=== PATIENT | female | born 1945 | race African-American/Black ===

== ENCOUNTER 2016-09-10 11:48 | Outpatient (RCR) | payer MEDICARE, MEDICAID ==
[~2016-09-10 11:48] MED LIST: ATENOLOL; BACTRIM DS TAB1 EAC1 ORAL; BACTRIM-DS1 EA ORAL; BACTRIM-DS1 EA PO; BENTYL10 MG ORAL; CELEBREX; COLACE100 MG/10 GT; Crestor; HYZAAR; IBUPROFEN600 MG ORAL; IBUPROFEN800 MG ORAL; KEFLEX; KEFLEX500 MG ORAL; LIPITOR; NITROFURANTOIN100 M2 ORAL; NORCO 5-325 TA1 EACH ORAL; NORVASC; ONDANSETRON ODT4 MG ORAL; PRILOSEC; hyzaar; norvasc
== END 2016-09-14 | disposition home or self-care (01) ==
LOC: PTY 11:48
DX: M54.08 Panniculitis affecting regions of neck and back, sacral and sacrococcygeal region (principal); M51.36 Other intervertebral disc degeneration, lumbar region; I10 Essential (primary) hypertension
CPT/HCPCS: 97110; 97140; 97162; G8978; G8979

== ENCOUNTER 2016-10-12 10:45 | Outpatient (RCR) | payer MEDICARE, MEDICAID | END 2016-10-15 | disposition home or self-care (01) | LOC: PTY 10:45 | DX: M54.08 Panniculitis affecting regions of neck and back, sacral and sacrococcygeal region (principal); M51.36 Other intervertebral disc degeneration, lumbar region; I10 Essential (primary) hypertension; M19.91 Primary osteoarthritis, unspecified site | CPT/HCPCS: 97035; 97110; 97140; G0283 ==

== ENCOUNTER 2017-02-21 16:18 | Emergency (ER) | payer MEDICARE, MEDICAID ==
[~2017-02-21] VITALS: Ht 154.9 cm; Wt 94.3 kg
[2017-02-21 17:15] VITALS: BP 145/88
[2017-02-21 17:34] LABS: BASOPHILS % (AUTO) 2.5 % (0.0-2.0); EOSINOPHILS % (AUTO) 3.8 % (0.0-3.0); HEMATOCRIT 39.5 % (37.0-47.0); LYMPHOCYTES % (AUTO) 34.4 % (20.0-45.0); MEAN CORPUSCULAR VOLUME 97 FL (80-99); MONOCYTES % (AUTO) 10.5 % (1.0-10.0); NEUTROPHILS % (AUTO) 48.9 % (45.0-75.0); PLATELET COUNT 103 K/UL (150-450); RED BLOOD COUNT 4.09 M/UL (4.20-5.40); RED CELL DISTRIBUTION WIDTH 13.2 % (11.6-14.8); WHITE BLOOD COUNT 3.9 K/UL (4.8-10.8)
[2017-02-21] MEDS ORDERED: TESSALON PERLE100 MG ORAL (17:42)
--- NOTE | 2017-02-21 17:42 | Emergency Room Report ---
History of Present Illness General Chief Complaint: Chest Pain Source: Patient Present Illness HPI 71-year-old female, history of hypertension, presenting with dry cough for one week. Dry cough, slight shortness of breath. Also complaining of some intermittent substernal chest pain. States that she is unsure if it is related to the cough. Not experiencing any chest pain at this time. Some shortness of breath. No palpitations. States that everyone is sick around her. She still able to eat and drink, no nausea vomiting or diarrhea Allergies: Coded Allergies: PENICILLINS (Verified Allergy, Intermediate, ITCHING, 12/05/11) Patient History Past Medical History: see triage record Past Surgical History: none Pertinent Family History: none Last Menstrual Period: Post Reviewed Nursing Documentation: PMH: Agreed, PSxH: Agreed Nursing Documentation-PMH Hx Hypertension: Yes - high cholesterol Hx Pacemaker: No Hx Asthma: No Hx COPD: No Hx Cancer: No Hx Gastrointestinal Problems: Yes - ACID REFLUX, HERNIA, ULCER Hx Dialysis: No Hx Cerebrovascular Accident: No Hx Seizures: No Review of Systems All Other Systems: negative except mentioned in HPI Physical Exam Vital Signs Date Time Temp Pulse Resp B/P (MAP) Pulse Ox O2 Delivery O2 Flow Rate FiO2 02/21/17 16:45 98.2 60 20 145/88 99 Room Air Sp02 EP Interpretation: reviewed, normal General Appearance: normal inspection, well appearing, no apparent distress, alert, GCS 15, non-toxic Head: normocephalic, atraumatic Eyes: bilateral eye normal inspection, bilateral eye PERRL, bilateral eye EOMI ENT: normal ENT inspection, normal pharynx, normal voice, moist mucus membranes Neck: normal inspection, full range of motion, supple Respiratory: normal inspection, lungs clear, normal breath sounds, no respiratory distress, no retraction, no wheezing, speaking full sentences, chest symmetrical Cardiovascular #1: normal inspection, regular rate, rhythm, no edema, normal capillary refill Cardiovascular #2: 2+ radial (R), 2+ radial (L) Gastrointestinal: normal inspection, non tender, soft, non-distended, no guarding Musculoskeletal: normal inspection, back normal, normal range of motion, non- tender Neurologic: normal inspection, alert, oriented x3, responsive, motor strength/ tone normal, sensory intact, normal gait, speech normal Psychiatric: normal inspection, judgement/insight normal, memory normal Skin: normal inspection, normal color, no rash, warm/dry, well hydrated, normal turgor Medical Decision Making Diagnostic Impression: Primary Impression: Chest pain Additional Impression: Cough ER Course 71-year-old female, intermittent chest pain, cough for one week DDX: Viral illness, rule out pneumonia ACS vs. gastritis/GERD Plan: IV access, obtain labs including troponin, EKG, CXR ER course: Labs: troponin negative Patient remained chest pain free during ED stay. VSS nad at bedside will dc home Disposition: Patient will be discharged to home. Strict precautions discussed with patient on when to emergently return to the ED : this includes worsening/severe chest pain, palpitations, shortness of breath, syncopal episodes, fever or chills, which may indicate severe illness. Patient verbalized understanding. Patient instructed to follow up with their PMD within the next 2 days. Patient also instructed to follow up with a nail expert within 2 days for possible outpatient stress test. Patient agrees with plan. Please note that this Emergency Department Report was dictated using [employer]bag builder technology software, occasionally this can lead to erroneous entry secondary to interpretation by the dictation equipment. EKG Diagnostic Results EP Interpretation: Yes Rate: normal Rhythm: NSR ST Segments: Right bundle branch block. T-wave flattening in V2 ASA given to patient: y Rhythm Strip EP Interpretation: Yes Rate: 60 Rhythm: NSR, no PVCs, no ectopy Chest X-ray* CXR: Ordered: Yes 1 view Indication: Chest pain/cough EP interpretation: Yes Interpretation: No consolidation, no effusion, no PTX, no acute cardiopulmonary disease Impression: No acute disease Electronically signed by Josseline Boogie MD Laboratory Tests Test 02/21/17 17:11 White Blood Count 3.9 K/UL (4.8-10.8) L Red Blood Count 4.09 M/UL (4.20-5.40) L Hemoglobin 12.0 G/DL (12.0-16.0) Hematocrit 39.5 % (37.0-47.0) Mean Corpuscular Volume 97 FL (80-99) Mean Corpuscular Hemoglobin 29.4 PG (27.0-31.0) Mean Corpuscular Hemoglobin Concent 30.4 G/DL (32.0-36.0) L Red Cell Distribution Width 13.2 % (11.6-14.8) Platelet Count 103 K/UL (150-450) L Mean Platelet Volume 11.7 FL (6.5-10.1) H Neutrophils (%) (Auto) 48.9 % (45.0-75.0) Lymphocytes (%) (Auto) 34.4 % (20.0-45.0) Monocytes (%) (Auto) 10.5 % (1.0-10.0) H Eosinophils (%) (Auto) 3.8 % (0.0-3.0) H Basophils (%) (Auto) 2.5 % (0.0-2.0) H Sodium Level 143 MMOL/L (136-145) Potassium Level 4.3 MMOL/L (3.5-5.1) Chloride Level 108 MMOL/L (98-107) H Carbon Dioxide Level 28 MMOL/L (21-32) Anion Gap 7 mmol/L (5-15) Blood Urea Nitrogen 21 mg/dL (7-18) H Creatinine 0.8 MG/DL (0.55-1.30) Estimate Glomerular Filtration Rate > 60 mL/min (>60) Glucose Level 86 MG/DL (74-106) Calcium Level 9.2 MG/DL (8.5-10.1) Total Bilirubin 0.3 MG/DL (0.2-1.0) Aspartate Amino Transferase (AST) 19 U/L (15-37) Alanine Aminotransferase (ALT) 23 U/L (12-78) Alkaline Phosphatase 68 U/L (46-116) Troponin I 0.021 ng/mL (0.000-0.056) Pro-B-Type Natriuretic Peptide 139 pg/mL (0-125) H Total Protein 7.7 G/DL (6.4-8.2) Albumin 3.8 G/DL (3.4-5.0) Globulin 3.9 g/dL Albumin/Globulin Ratio 1.0 (1.0-2.7) Last Vital Signs Date Time Temp Pulse Resp B/P (MAP) Pulse Ox O2 Delivery O2 Flow Rate FiO2 02/21/17 16:45 98.2 60 20 145/88 99 Room Air Disposition: HOME, SELF-CARE Condition: Improved Scripts Benzonatate* (TESSALON PERLE*) 100 Mg Capsule 100 MG ORAL THREE TIMES A DAY, #21 PERLE 0 Refills Prov: Retino,Clairose M.D. 02/21/17 Referrals: NOT CHOSEN [facility]/,REFERRING (PCP) Patient Instructions: Nonspecific Chest Pain Josseline Boogie M.D. Feb 21, 2017 17:42
[2017-02-21 17:57] LABS: ANION GAP 7 mmol/L (5-15); BLOOD UREA NITROGEN 21 mg/dL (7-18); CALCIUM 9.2 MG/DL (8.5-10.1); CARBON DIOXIDE 28 MMOL/L (21-32); CHLORIDE 108 MMOL/L (98-107); CREATININE 0.8 MG/DL (0.55-1.30); POTASSIUM 4.3 MMOL/L (3.5-5.1); SODIUM 143 MMOL/L (136-145)
[2017-02-21 18:04] LABS: ALANINE AMINOTRANSFERASE 23 U/L (12-78); ALBUMIN 3.8 G/DL (3.4-5.0); ALKALINE PHOSPHATASE 68 U/L (46-116); ASPARTATE AMINO TRANSFERASE 19 U/L (15-37); BILIRUBIN,TOTAL 0.3 MG/DL (0.2-1.0)
[2017-02-21 18:22] VITALS: BP 153/84
--- NOTE | 2017-02-22 21:48 | Diagnostic Imaging Report ---
Indication: Cough Comparison: None A single view chest radiograph was obtained. Findings: Cardiomediastinal appearance is within normal limits for age. Pulmonary vascularity is appropriate. The diaphragmatic contour is smooth and costophrenic angles are sharp. No pleural effusions are identified. The bones are unremarkable. Impression: No acute findings
--- NOTE | 2017-02-22 21:49 | Cardiology Report ---
APPROVED REPORT EKG Measurement Heart [id number] Normal sinus rhythm Right bundle branch block Abnormal ECG
== END 2017-02-21 17:22 | disposition home or self-care (01) ==
LOC: EMR 16:51
DX: R05 Cough (principal); R07.89 Other chest pain; I10 Essential (primary) hypertension; Z88.0 Allergy status to penicillin; K21.9 Gastro-esophageal reflux disease without esophagitis; Z87.19 Personal history of other diseases of the digestive system
CPT/HCPCS: 36415; 71045; 80053; 83880; 84484; 85025; 93005; 99284

== ENCOUNTER 2017-03-22 13:00 | Outpatient (RCR) | payer MEDICARE, MEDICAID ==
[~2017-03-22 13:00] MED LIST changes: +TESSALON PERLE100 MG ORAL
== END 2017-04-14 | disposition home or self-care (01) ==
LOC: PTY 13:00
DX: M25.562 Pain in left knee (principal); M51.16 Intervertebral disc disorders with radiculopathy, lumbar region; M51.36 Other intervertebral disc degeneration, lumbar region; M54.08 Panniculitis affecting regions of neck and back, sacral and sacrococcygeal region
CPT/HCPCS: 97110; 97162; G0283; G8978; G8979

== ENCOUNTER 2017-04-19 13:21 | Outpatient (RCR) | payer MEDICARE, MEDICAID ==
[2017-04-26] MEDS ORDERED: TYLENOL EXTRA500 MG ORAL (15:43)
== END 2017-05-15 | disposition home or self-care (01) ==
LOC: PTY 13:21
DX: M25.562 Pain in left knee (principal); M51.16 Intervertebral disc disorders with radiculopathy, lumbar region; M51.36 Other intervertebral disc degeneration, lumbar region; M54.08 Panniculitis affecting regions of neck and back, sacral and sacrococcygeal region
CPT/HCPCS: 97110; G0283

== ENCOUNTER 2017-04-26 13:46 | Emergency (ER) | payer MEDICARE, MEDICAID ==
[~2017-04-26] VITALS: Ht 154.9 cm; Wt 93.0 kg
--- NOTE | 2017-04-26 14:23 | Emergency Room Report ---
History of Present Illness General Chief Complaint: Lower Extremity Injury Present Illness HPI 71 yo female patient presents to ER complaining of knee and hickman pain x1 week. Patient does not recall hx of incident or injury. Reports pain with ambulation; reports able to walk to ER today. Denies radiation of pain from back, reports pain in knee moves to anterior proximal hickman. Reports taking SOMA last night for relief of symptoms. Denies hx of DVT. Denies chest pain, SOB, abdominal pain, fever, rash. Denies taking blood thinners or anticoagulants. Denies calf pain, denies swelling of leg. Denies CA. Denies OCP. Denies recent travel, surgery, or immobilization. Denies hx of DVT, PE, or blood disorder. Allergies: Coded Allergies: PENICILLINS (Verified Allergy, Intermediate, ITCHING, 12/05/11) Patient History Past Medical History: see triage record Reviewed Nursing Documentation: PMH: Agreed, PSxH: Agreed Nursing Documentation-PMH Hx Hypertension: Yes - high cholesterol Hx Pacemaker: No Hx Asthma: No Hx COPD: No Hx Cancer: No Hx Gastrointestinal Problems: Yes - ACID REFLUX, HERNIA, ULCER Hx Dialysis: No Hx Cerebrovascular Accident: No Hx Seizures: No Review of Systems All Other Systems: negative except mentioned in HPI Physical Exam Vital Signs Date Time Temp Pulse Resp B/P (MAP) Pulse Ox O2 Delivery O2 Flow Rate FiO2 04/26/17 13:57 98.5 59 16 147/64 97 Room Air 98.4 Sp02 EP Interpretation: reviewed, normal General Appearance: well appearing, no apparent distress, alert, GCS 15, non- toxic Head: normocephalic, atraumatic Eyes: bilateral eye normal inspection, bilateral eye PERRL ENT: hearing grossly normal, normal pharynx, no angioedema, normal voice, uvula midline, moist mucus membranes Neck: full range of motion Respiratory: lungs clear, normal breath sounds, no rhonchi, no respiratory distress, no accessory muscle use, no wheezing, speaking full sentences Cardiovascular #1: regular rate, rhythm, no edema Cardiovascular #2: 2+ dorsalis pedis (R), 2+ dorsalis pedis (L) Gastrointestinal: non tender, soft, no mass, non-distended, no guarding, no rebound Genitourinary: no CVA tenderness Musculoskeletal: back normal, digits/nails normal, gait/station normal, normal range of motion, non-tender - right lower extremity below knee, no calf tenderness, Diane's Sign negative, swelling - mild over right knee patella, other - no pitting edema, negative anterior drawer, negative posterior drawer, negative Candy, negative syndesmotic squeeze, NVI, tender - over right patella Neurologic: alert, oriented x3, responsive, motor strength/tone normal, sensory intact Psychiatric: mood/affect normal Skin: no rash, other Lymphatic: no adenopathy Medical Decision Making PA Attestation Dr. Franks is my supervising Physician whom patient management has been discussed with. Diagnostic Impression: Primary Impression: Knee pain, right ER Course Pt. presents to the ED c/o right knee and leg pain. Ddx considered but are not limited to fracture, sprain, strain, contusion. Low suspicion for DVT per Well's criteria. Negative Diane's sign. Vital signs: are WNL, pt. is afebrile PE: mild swelling of right knee, mild TTP and swelling over right patella, no ecchymosis, or erythema of lower leg or calf. Do not need imaging for lower leg at this time. Ordered X-ray of right knee and pain medication. ER COURSE Patient provided with Tylenol for pain. An X-ray of the right knee was ordered, results show no acute fracture, per the preliminary reading. HOWIE Wrap applied and knee was checked afterwards by me showing good alignment and support with distal neurovascular functioning intact. Cane provided. Patient reports feeling better following administration of medication. Reports feeling better with HOWIE Wrap. Informed patient of DVT and PE warning signs to be aware of. Instructed patient to return to ER immediately for any symptoms including but not limited to chest pain, SOB, erythema and swelling of calf. Instructed patient to followup with cardiology and vascular surgeon as required by primary care provider. Patient reports understanding and agreement to treatment plan. DISCHARGE: -Rx provided for Tylenol for pain symptoms. At this time pt. is stable for d/c to home. Patient resting comfortably, in no acute distress, nontoxic appearing, resting comfortably, laughing and smiling without difficulty. Patient able to ambulate independently. Will provide printed patient care instructions, and any necessary prescriptions. Patient instructed to follow with primary care provider in 3 - 5 days and to request further orthopedic follow-up. Care plan and follow up instructions have been discussed with the patient prior to discharge. Patient instructed on RICE method: rest, ice, compression, elevation. Patient instructed to WBAT. Take medications as directed. Patient questions asked and answered. Patient reports understanding and agreement to treatment plan. ER precautions given, patient instructed to return to ER immediately for any new or worsening of symptoms. Other X-Ray Diagnostic Results Other X-Ray Diagnostic Results : X-Ray ordered: right knee # of Views/Limited Vs Complete: 3 View Indication: Pain EP Interpretation: Yes PA Xray: Interpretation reviewed, by supervising MD, and agrees with findings. Interpretation: no dislocation, no soft tissue swelling, no fractures Impression: No acute disease ELINA Scribe Text Chavez Byers PA-C Last Vital Signs Date Time Temp Pulse Resp B/P (MAP) Pulse Ox O2 Delivery O2 Flow Rate FiO2 04/26/17 13:57 98.5 59 16 147/64 97 Room Air 98.4 Disposition: HOME, SELF-CARE Condition: Stable Scripts Acetaminophen* (TYLENOL EXTRA STRENGTH*) 500 Mg Tablet 500 MG ORAL Q8H Y for Prn Headache/Temp > 101, #30 TAB 0 Refills Prov: Simon Byers 04/26/17 Patient Instructions: Knee Effusion, [id number] Additional Instructions: Patient instructed to follow up with primary care provider and discuss further referral to orthopedics. Patient instructed on RICE method: rest, ice, compression, elevation. Patient instructed to WBAT (weight bearing as tolerated). Discuss referral to cardiology and vascular surgeon as needed. Take medications as directed. Patient questions asked and answered. ER precautions given, patient instructed to return to ER immediately for any new or worsening of symptoms. Simon Byers Apr 26, 2017 14:23
[2017-04-26] MEDS ORDERED: Acetaminophen 500mg (ES) tab ORAL ONE (14:30)
[2017-04-26] MEDS ORDERED: TYLENOL EXTRA500 MG ORAL (15:43)
[2017-04-26 16:04] VITALS: BP 140/69
--- NOTE | 2017-04-26 16:14 | Diagnostic Imaging Report ---
Indications: Right knee pain Technique: Three views of the right knee Comparison: None Findings: No acute fractures. No dislocations. Joint spaces are preserved. No radiopaque foreign body. Normal mineralization. Impression: No acute process
== END 2017-04-26 16:04 | disposition home or self-care (01) ==
LOC: EMR 15:07
DX: M25.561 Pain in right knee (principal); E78.00 Pure hypercholesterolemia, unspecified; K21.9 Gastro-esophageal reflux disease without esophagitis; Z87.11 Personal history of peptic ulcer disease; Z88.0 Allergy status to penicillin
CPT/HCPCS: 99283

== ENCOUNTER 2018-08-02 17:37 | Emergency (ER) | payer MEDICARE, MEDICAID ==
[~2018-08-02] VITALS: Ht 154.9 cm; Wt 92.1 kg
[~2018-08-02 17:37] MED LIST changes: +TYLENOL EXTRA500 MG ORAL
[2018-08-02 18:15] VITALS: BP 153/72
[2018-08-02] MEDS ORDERED: Fleet's Enema 133ml RECTAL ONE (18:15)
--- NOTE | 2018-08-02 18:23 | Emergency Room Report ---
History of Present Illness General Chief Complaint: Constipation Source: Patient, Medical Record Present Illness HPI Patient presents emergency department today complaining of constipation. Patient states that she has not had a bowel movement in 4 days. She has abdominal discomfort. She states that she is been taking a lot of vitamin supplements and some of those have iron which have caused her to be constipated. She denies any fever nausea vomiting diarrhea chills. She states in the past she has no other modifying factors. No other associated signs and symptoms. No other complaints were noted. Had symptoms of constipation. She states that she has seen outside hospitals in the past as well. She denies any other complaints. Denies any dysuria urinary frequency. She states that she can just go to the bathroom she will feel much better. Allergies: Coded Allergies: PENICILLINS (Verified Allergy, Intermediate, ITCHING, 12/05/11) Patient History Past Medical History: other - High cholesterol PMH Narrative Gastric reflux, hernia, stomach ulcer Past Surgical History: none Pertinent Family History: none Social History: Denies: smoking, alcohol use, drug use Reviewed Nursing Documentation: PMH: Agreed; PSxH: Agreed Nursing Documentation-PMH Past Medical History: No History, Except For Hx Hypertension: Yes - high cholesterol Hx Pacemaker: No Hx Asthma: No Hx COPD: No Hx Cancer: No Hx Gastrointestinal Problems: Yes - ACID REFLUX, HERNIA, ULCER Hx Dialysis: No Hx Cerebrovascular Accident: No Hx Seizures: No Review of Systems All Other Systems: negative except mentioned in HPI Physical Exam Vital Signs Date Time Temp Pulse Resp B/P (MAP) Pulse Ox O2 Delivery O2 Flow Rate FiO2 08/02/18 17:41 98.2 71 18 153/72 (99) 96 Room Air Sp02 EP Interpretation: reviewed, normal General Appearance: normal inspection, well appearing, no apparent distress, alert Head: atraumatic Eyes: bilateral eye normal inspection ENT: normal ENT inspection, hearing grossly normal, normal voice Neck: normal inspection, full range of motion, supple, no bony tend Respiratory: normal inspection, lungs clear, normal breath sounds, no respiratory distress, no retraction, no wheezing Cardiovascular #1: regular rate, rhythm, no edema Gastrointestinal: normal inspection, normal bowel sounds, non tender, soft, no guarding, no hernia Rectal: normal exam, other - Large amount of stool. Brown Genitourinary: no CVA tenderness Musculoskeletal: normal inspection, back normal, normal range of motion Neurologic: normal inspection, alert, responsive, speech normal Psychiatric: normal inspection, judgement/insight normal, mood/affect normal Skin: normal inspection, normal color, no rash Medical Decision Making Diagnostic Impression: Primary Impression: Abdominal pain Additional Impression: Constipation ER Course Patient complains of constipation. Differential considerations include diverticulitis, constipation, bowel obstruction, gastritis just name a few. Patient's exam is consistent with constipation. Patient was given a fleets enema with a large bowel movement subsequently. Patient currently feels much better asymptomatic benign abdominal exam. Therefore I feel the patient be discharged home. No further work-up indicated at this time. Patient is given a prescription for lactulose. Patient is advised to follow up with primary doctor in 2-3 days and return the emergency room for any worsening symptoms and as needed. Last Vital Signs Date Time Temp Pulse Resp B/P (MAP) Pulse Ox O2 Delivery O2 Flow Rate FiO2 08/02/18 18:15 98.2 78 18 153/72 96 Room Air Status: improved Disposition: HOME, SELF-CARE Condition: Stable Scripts Lactulose (LACTULOSE*) 20 Gm/30 Ml Solution 30 ML ORAL BID for constipation for 5 Days, ML 0 Refills Prov: Chalo Sharp MD 08/02/18 Chalo Sharp MD Aug 02, 2018 18:23
[2018-08-02] MEDS ORDERED: LACTULOSE20 GM/301 ORAL (18:59)
[2018-08-02 19:00] VITALS: BP 153/72
== END 2018-08-02 19:00 | disposition home or self-care (01) ==
LOC: EMR 18:30
DX: K59.00 Constipation, unspecified (principal); R10.9 Unspecified abdominal pain; Z88.0 Allergy status to penicillin; E78.00 Pure hypercholesterolemia, unspecified; K21.9 Gastro-esophageal reflux disease without esophagitis
CPT/HCPCS: 99282

== ENCOUNTER 2019-11-08 17:10 | Emergency (ER) | payer MEDICARE, MEDICAID ==
[~2019-11-08] VITALS: Ht 154.9 cm; Wt 93.0 kg
[~2019-11-08 17:10] MED LIST changes: +LACTULOSE20 GM/301 ORAL
--- NOTE | 2019-11-08 17:27 | NUR ---
ED Nurse Note: pt presents to ED with an abscess on her R buttock toward the center x 1 week. pt states that it "bursted" today and that she has been rubbing tea tree oil on it. it appears to be an open wound
[2019-11-08 17:44] VITALS: BP 145/67
--- NOTE | 2019-11-08 18:21 | NUR ---
ED Nurse Note: pt refusing blood work and CT scan at this time, wants I&D Addendum: 11/08/19 at 2002 by MENA pt changed her mind, no longer wants I&E, signed AMA paperwork
[2019-11-08] MEDS ORDERED: metroNIDAZOLE 500mg tab ORAL ONE (18:45)
--- NOTE | 2019-11-08 18:49 | Emergency Room Report ---
History of Present Illness General Chief Complaint: Skin Rash/Abscess Present Illness HPI 74 YO Female presents to the ED c/o "boil on the left upper leg". She localizes her symptoms to the Left buttock. Pt. reports symptoms began as a part of a palpable hard nodule and has progressed into a boil. Patient states that yesterday it began draining on its own. Patient reports continued increase in pain. She describes having 8 out of 10 severity pain, tenderness and discharge. She denies rectal symptoms or pain with bowel movements. She reports history of boils that required drainage in the past and multiple different areas. She denies fevers or chills. She denies diabetes or immune compromise. She reports she has been applying tea tree oil which caused the boil to begin draining on its own.She denies itching. Allergies: Coded Allergies: PENICILLINS (Verified Allergy, Intermediate, ITCHING, 12/05/11) COVID-19 Screening Contact w/high risk pt: No Experienced COVID-19 symptoms?: No COVID-19 Testing performed INVOICE CONTROL CLERK: No Patient History Past Medical History: see triage record Past Surgical History: none Pertinent Family History: none Now: No Reviewed Nursing Documentation: PMH: Agreed; PSxH: Agreed Nursing Documentation-PMH Hx Hypertension: Yes - high cholesterol Hx Pacemaker: No Hx Asthma: No Hx COPD: No Hx Cancer: No Hx Gastrointestinal Problems: Yes - ACID REFLUX, HERNIA, ULCER Hx Dialysis: No Hx Cerebrovascular Accident: No Hx Seizures: No Review of Systems All Other Systems: negative except mentioned in HPI Physical Exam Vital Signs Date Time Temp Pulse Resp B/P (MAP) Pulse Ox O2 Delivery O2 Flow Rate FiO2 11/08/19 17:13 98.4 65 18 145/67 (93) 95 Room Air Sp02 EP Interpretation: reviewed, normal General Appearance: no apparent distress, alert, GCS 15, non-toxic Head: normocephalic, atraumatic Eyes: bilateral eye normal inspection, bilateral eye PERRL ENT: hearing grossly normal, normal voice Neck: full range of motion Respiratory: lungs clear, normal breath sounds, speaking full sentences Cardiovascular #1: regular rate, rhythm Gastrointestinal: normal bowel sounds, non tender, soft Rectal: hemorrhoids, other - 4cm abscess and cellulitis of the left buttock very close to the rectum. in the 8 O'Clock position. fluctuance and drainage centrally with surrounding induration, erythema, and warmth. Musculoskeletal: normal range of motion, gait/station normal, non-tender Neurologic: alert, motor strength/tone normal, oriented x3, sensory intact, responsive, speech normal Psychiatric: judgement/insight normal, anxious Skin: other - 4cm abscess with moderate amount of fluctuance noted centrally and surrounding induration, warmth and erythema. The abscess is draining foul smelling purulent/yellow/green-opaque discharge with application of local pressure. Lymphatic: no adenopathy Procedures Incision and Drainage Incision and Drainage : Consent: Verbal Site: Left inner buttock I & D Procedure: betadine prep, sterile drapes applied, sterile dressing applied Wound Explored: contaminated - Purulent foul-smelling d/c draining with application of pressure, from small opening in the center of the abscess. Anesthesia: 1% Lidocaine Volume Anesthetic (ccs): 3 Splint Applied?: No Sling Applied?: No Patient Tolerated: Poor - Pt. did not want to go through with the procedure. She did not tolerate the application of local anesthesia Complications: Other - not performed- pt. changed her mind after not tolerating local anesthesia application Medical Decision Making PA Attestation Dr. Yang is my supervising Physician whom patient management has been discussed with. Diagnostic Impression: Primary Impression: Perianal cellulitis Additional Impressions: Perianal abscess Diagnostic procedure declined Consent for treatment declined ER Course 74 YO Female presents to the ED c/o "boil on the left upper leg". She localizes her symptoms to the Left buttock. Pt. reports symptoms began as a part of a palpable hard nodule and has progressed into a boil. Patient states that yeste rday it began draining on its own. Patient reports continued increase in pain. She describes having 8 out of 10 severity pain, tenderness and discharge. She denies rectal symptoms or pain with bowel movements. Denies BRBPR, Constipation or rectal tenderness/pain. She reports history of boils that required drainage in the past and multiple different areas. She denies fevers or chills. She denies diabetes or immune compromise. She reports she has been applying tea tree oil which caused the boil to begin draining on its own.She denies itching. Ddx considered but are not limited to cellulitis, abscess, lady-rectal abscess, Perianal abscess, fistula, hemorrhoid just to name a few. . Vital signs: are WNL, pt. is afebrile H&PE are most consistent with 4cm abscess and cellulitis of the left buttock very close to the rectum. - . 4cm abscess with moderate amount of fluctuance noted centrally and surrounding induration, warmth and erythema. The abscess is draining foul smelling purulent/yellow/green-opaque discharge with application of local pressure. Incision and drainage is recommended however patient declined. ORDERS: Pt. declines Labs and CT imaging, there was no blood draw, and orders were not entered. ED INTERVENTIONS: - Tylenol PO - Metronidazole and erythromycin PO administered in ED. -I & D recommended- declined by pt. --After discussing the importance of the procedure as well as labs and CT imaging. Pt. declines labs and imaging but then changed her mind and was allowing me to attempt I & D. Pt. poorly tolerated the administration of localized anesthesia and did not want the procedure any more nor localized anesthesia application. D/w pt. that the recommened diagnostic tests, imaging and therapeutic procedure is necessary and She is putting her self at risk by declining. Pt. reports she will have it done by her doctor and he can "put her out". to have procedure done. She reports her doctor can do labs and imaging. D/w pt. need to r/o more severe etiologies such as fistula. Patient is given ED return precautions to return promptly with worsening or new symptoms or if she changes her mind about recommended work-up and procedure. DISPOSITION: Pt. Requests AMA. - At this time the patient is requesting to leave AGAINST MEDICAL ADVICE. I believe that this patient has the capacity to make decisions on her own. I discussed with the patient the risks of leaving AMA. Some of these risks include delay in diagnosis and treatment, as well as worsening of symptoms, organ damage, need for more invasive procedures, permanent disability or even . After discussing these risks with the patient. She continues to express her want and intention to leave AGAINST MEDICAL ADVICE. I encouraged the patient to return at any time, and that she will be welcome here in the emergency department to continue medical management. AMA paper work was signed, addition above first line noting the I & D procedure was also declined was initialed by both provider and pt. The pt. is given a copy of her AMA form. Last Vital Signs Date Time Temp Pulse Resp B/P (MAP) Pulse Ox O2 Delivery O2 Flow Rate FiO2 9/23/20 17:13 98.4 65 18 145/67 (93) 95 Room Air Disposition: AGAINST MEDICAL ADVICE Condition: Unknown Scripts Hydrocodone Bit/Acetaminophen 5-325* (NORCO 5-325 TABLET*) 1 Each Tablet 1 TAB ORAL Q6H PRN for FOR PAIN, #10 TAB 0 Refills Prov: Joelle Khan 11/08/19 Mupirocin* (MUPIROCIN*) 22 Gm Oint...g. 1 APPLIC TOPIC THREE TIMES A DAY, #22 GM Prov: Joelle Khan 11/08/19 Metronidazole* (FLAGYL*) 500 Mg Tablet 500 MG ORAL THREE TIMES A DAY for 7 Days, #21 TAB 0 Refills Prov: Joelle Khan 11/08/19 Erythromycin Base (Erythromycin) 500 Mg Tablet.dr 500 MG PO Q6HR for 7 Days, #28 TAB Prov: Joelle Khan 11/08/19 Referrals: NON PHYSICIAN (PCP) Patient Instructions: Abscess, Perianal Abscess Additional Instructions: You are leaving AMA, and declining incision and drainage procedure along with the necessary diagnostic lab work are available. This can cause delayed diagnosis as well as treatment, and ultimately leading up to worsening of symptoms, damage to organs, permanent disability or even . You are encouraged to return to the ER at any time if you want to continue your evaluation FOLLOW UP WITH YOUR PMD IMMEDIATELY *Return to the ED if you have worsening or new symptoms * Joelle Khan Nov 08, 2019 18:49
[2019-11-08] MEDS ORDERED: METRONIDAZOLE500 MG ORAL (18:52)
[2019-11-08] MEDS ORDERED: MUPIROCIN22 GM TOPIC (18:52)
[2019-11-08] MEDS ORDERED: NORCO 5-325 TA1 EAC1 ORAL (18:52)
[2019-11-08] MEDS ORDERED: ERYTHROMYCIN500 M2 PO (18:52)
[2019-11-08 19:00] VITALS: BP 145/67
--- NOTE | 2019-11-08 19:00 | NUR ---
ER DISCHARGE NOTE: Patient is cleared to be discharged per ERMD, pt is aox4, on room air, with stable vital signs. pt was given dc, prescription and follow up instructions, pt was able to verbalize understanding, pt id band removed without complications. pt is able to ambulate with steady gait. pt took all belongings.
== END 2019-11-08 19:00 | disposition left against medical advice (07) ==
LOC: EMR 17:30
DX: K61.0 Anal abscess (principal); L03.317 Cellulitis of buttock; Z88.0 Allergy status to penicillin; E78.00 Pure hypercholesterolemia, unspecified; I10 Essential (primary) hypertension; K21.9 Gastro-esophageal reflux disease without esophagitis
CPT/HCPCS: 99283

== ENCOUNTER 2020-03-30 15:56 | Emergency (ER) | payer MEDICARE, MEDICAID ==
[~2020-03-30] VITALS: Ht 154.9 cm; Wt 90.7 kg
[~2020-03-30 15:56] MED LIST changes: +ERYTHROMYCIN500 M2 PO; +METRONIDAZOLE500 MG ORAL; +MUPIROCIN22 GM TOPIC; +NORCO 5-325 TA1 EAC1 ORAL
[2020-03-30 16:12] VITALS: BP 157/80
--- NOTE | 2020-03-30 16:22 | NUR ---
ED Nurse Note: Patient from home and walked in due to a boil close to her rectum x 3-4 days. Denies rectal bleeding or draining. Pt is AAO x4, ambulatory.
[2020-03-30] MEDS ORDERED: CEPHALEXIN500 MG ORAL (16:46)
[2020-03-30] MEDS ORDERED: BACTRIM DS TAB1 EAC1 ORAL (16:46)
--- NOTE | 2020-03-30 16:55 | NUR ---
ER DISCHARGE NOTE: Patient is cleared to be discharged per ERMD, pt is aox4, on room air, with stable vital signs. pt was given dc and prescription instructions, pt was able to verbalize understanding. pt is able to ambulate with steady gait. pt took all belongings.
--- NOTE | 2020-03-30 19:42 | Emergency Room Report ---
History of Present Illness General Chief Complaint: Skin Rash/Abscess Source: Patient Present Illness HPI 77-year-old female presents for evaluation. States that there is a "boil" on her right buttock. Has been there for the last week. Pain is dull, 5 out of 10, nonradiating. States she has had these in the past and have typically required antibiotics. Denies fevers or chills. No other aggravating relieving factors. Denies any other associated symptoms Allergies: Coded Allergies: PENICILLINS (Verified Allergy, Intermediate, ITCHING, 12/05/11) COVID-19 Screening Contact w/high risk pt: No Experienced COVID-19 symptoms?: No COVID-19 Testing performed BRUSH FILLER HAND: No Patient History Past Medical History: ulcer, GERD Pertinent Family History: none Social History: Denies: smoking, alcohol use, drug use Now: No Immunizations: UTD Reviewed Nursing Documentation: PMH: Agreed; PSxH: Agreed Nursing Documentation-PMH Past Medical History: No History, Except For Hx Hypertension: Yes - high cholesterol Hx Pacemaker: No Hx Asthma: No Hx COPD: No Hx Cancer: No Hx Gastrointestinal Problems: Yes - ACID REFLUX, HERNIA, ULCER Hx Dialysis: No Hx Cerebrovascular Accident: No Hx Seizures: No Review of Systems All Other Systems: negative except mentioned in HPI Physical Exam Vital Signs Date Time Temp Pulse Resp B/P (MAP) Pulse Ox O2 Delivery O2 Flow Rate FiO2 03/30/20 16:12 99.0 87 20 157/80 94 Room Air Sp02 EP Interpretation: reviewed, normal General Appearance: no apparent distress, alert, GCS 15, non-toxic Head: normocephalic, atraumatic Eyes: bilateral eye normal inspection, bilateral eye PERRL ENT: hearing grossly normal, normal pharynx, no angioedema, normal voice Neck: full range of motion, supple/symm/no masses Respiratory: chest non-tender, lungs clear, normal breath sounds, speaking full sentences Cardiovascular #1: regular rate, rhythm, no edema Cardiovascular #2: 2+ carotid (R), 2+ carotid (L), 2+ radial (R), 2+ radial (L), 2+ dorsalis pedis (R), 2+ dorsalis pedis (L) Gastrointestinal: normal bowel sounds, non tender, soft, non-distended, no guarding, no rebound Rectal: deferred Genitourinary: normal inspection, no CVA tenderness Musculoskeletal: back normal, normal range of motion, gait/station normal, non- tender Neurologic: alert, motor strength/tone normal, oriented x3, sensory intact, responsive, speech normal Psychiatric: judgement/insight normal, memory normal, mood/affect normal, no suicidal/homicidal ideation Reflexes: 3+ bicep (R), 3+ bicep (L), 3+ tricep (R), 3+ tricep (L), 3+ knee (R), 3+ knee (L) Skin: other - 1 cm area of induration and erythema to right buttock. No fluctuance or discharge Lymphatic: no adenopathy Medical Decision Making Diagnostic Impression: Primary Impression: Abscess of buttock ER Course Hospital Course 77-year-old female presents with pain and swelling to the buttock Differential diagnoses include: Cellulitis, dermatitis, insect bite, abscess Clinical course Patient placed on stretcher. After initial history, physical exam reveals a elderly female in no acute distress. There is a area of erythema and induration to right buttock. No fluctuance or discharge. I discussed findings with patient. Afebrile, nontoxic-appearing. I do not believe he requires I&D at this time. Will attempt conservative therapy with warm soaks and antibiotics. Patient agrees. States previously they have resolved with antibiotics. Safe for discharge with close outpatient follow-up Diagnosis -abscess of buttock stable and discharged to home with prescription for bactrim, Keflex. Instructed to followup with PMD. Instructed return to ED if symptoms recur or worsen Last Vital Signs Date Time Temp Pulse Resp B/P (MAP) Pulse Ox O2 Delivery O2 Flow Rate FiO2 03/30/20 16:12 99.0 87 20 157/80 (105) 94 Room Air Status: improved Disposition: HOME, SELF-CARE Condition: Stable Scripts Trimethoprim/Sulfamethoxazole 160/800* (BACTRIM DS TABLET*) 1 Each Tablet 1 TAB ORAL Q12H, #14 TAB 0 Refills Prov: Nicola Franks MD 03/30/20 Cephalexin* (KEFLEX*) 500 Mg Capsule 500 MG ORAL EVERY 6 HOURS, #28 CAP Prov: Nicola Franks MD 03/30/20 Referrals: Ronal Workman PHYSICIAN (PCP) Patient Instructions: Abscess Nicola Franks MD Mar 30, 2020 19:42
== END 2020-03-30 16:56 | disposition home or self-care (01) ==
LOC: EMR 16:28
DX: L02.31 Cutaneous abscess of buttock (principal); E78.00 Pure hypercholesterolemia, unspecified; K21.9 Gastro-esophageal reflux disease without esophagitis; Z88.1 Allergy status to other antibiotic agents
CPT/HCPCS: 99282